=== PATIENT | male | born 1985 | race Caucasian/White ===

== ENCOUNTER → 2023-06-24 08:44 | Outpatient (CLI) | payer OTHER, SELFPAY ==
--- NOTE | ~2023-06-24 | XR_ITS ---
XR shoulder LT min 2V DATE: 06/24/2023 09:07 INDICATION: Left shoulder injury TECHNIQUE: 4 views COMPARISON: None FINDINGS: No fracture or dislocation, periosteal reaction or bone destruction. Normal alignment at th e acromioclavicular and glenohumeral joints. No abnormal left shoulder soft tissue calcification. IMPRESSION: Negative Reviewed, dictated and finalized at location L. ER EEL IMPRESSION: Negative
== END ==
PROVIDERS: PCP Nurse Practitioner Family; Visit Provider Nurse Practitioner Family
DX: S49.92XA Unspecified injury of left shoulder and upper arm, initial encounter (principal); X58.XXXA Exposure to other specified factors, initial encounter
CPT/HCPCS: 73030